=== PATIENT | male | born 1965 | race Hispanic/Latino ===

== ENCOUNTER 2025-05-29 11:03 | Emergency (ER) | payer OTHER ==
[~2025-05-29] VITALS: Ht 172.7 cm; Wt 106.1 kg
[2025-05-29] MEDS ORDERED: TETRACAINE HCL 0.5% 4 ML OPHTH SOLN OP STA (11:10)
--- NOTE | 2025-05-29 11:12 | ERN ---
ED Note History of Present Illness Stated Complaint: EYE Chief Complaint: Eye Problems Time Seen by MD: 11:05 Dictation: IN HIS A 60-YEAR-OLD MALE COMING IN WITH COMPLAINTS OF FOREIGN BODY SENSATION TO THE LEFT EYE HE HAS HAD FOR THREE WEEKS. 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 HE STATES HE CONTINUED TO WORK DID NOT GO TO THE HOSPITAL UNTIL REAL AND JUST GOT HOME TODAY. HE WENT TO [facility] THEY TOLD HIM THAT THERE WAS NO FOREIGN BODY IN HIS EYE AND COOL. BUT IF HE CONTINUED TO HAVE THE SENSATION GO TO THE EMERGENCY ROOM. HE STATES HE WAS WEARING SAFETY GLASSES AT THE TIME HOWEVER IF HE WAS SWEATING IN HIS TAKEN HIM OFF BUT HE DOES WEAR CORRECTIVE LENSES. Allergies: Coded Allergies: No Known Drug Allergies (Unverified Allergy, Unknown, 05/29/25) Past Medical History Past Medical History: Diabetes-Type II, Hypertension Surgical History: Other Surgical History Other: UMBILICAL HERNIA X 2 RN Note Reviewed/Agreed w/PFSH: Yes Review of System Dictation CONSTITUTIONAL: NEGATIVE EXCEPT FOR HPI HEAD/FACE: NEGATIVE EXCEPT FOR HPI EENT: NEGATIVE EXCEPT FOR LEFT RED EYE WITH POSSIBLE RETAINED FOREIGN BODY RESPIRATORY: NEGATIVE EXCEPT FOR HPI GASTROINTESTINAL/ABDOMINAL: NEGATIVE EXCEPT FOR HPI GENITOURINARY: NEGATIVE EXCEPT FOR HPI MUSCULOSKELETAL: NEGATIVE EXCEPT FOR HPI INTEGUMENTARY: NEGATIVE EXCEPT FOR HPI NEUROLOGICAL/PSYCH: NEGATIVE EXCEPT FOR HPI HEMATOLOGIC/LYMPHATIC: NEGATIVE EXCEPT FOR HPI ALL SYSTEMS NEGATIVE, EXCEPT NOTED ABOVE. 13 POINT REVIEW OF SYSTEMS ASSESSED AND ALL NEGATIVE EXCEPT FOR ABOVE. Initial Vital Sign VS Vital Signs Date Time Temp Pulse Resp B/P (MAP) Pulse Ox O2 Delivery O2 Flow Rate FiO2 05/29/25 11:05 97.5 58 16 120/73 97 Room Air 0 Physical Exam Dictation VITAL SIGNS REVIEWED GENERAL APPEARANCE: ALERT, ORIENTED X 3, NO ACUTE DISTRESS, WELL DEVELOPED, NOURISHED. HEAD AND FACE: NON-TRAUMATIC. EYES: PERRL, LEFT CONJUNCTIVA INJECTED EOMS INTACT. PERRLA EARS: PINNAS INTACT AND NO SIGNS OF TRAUMA OR ERYTHEMA EAR CANALS CLEAR AND NO DISCHARGE TM NO ERYTHEMA NOSE: NO DISCHARGE, NO BLEEDING. OROPHARYNX: MOUTH NORMAL, TONGUE PINK, PHARYNX CLEAR,NO ERYTHEMA, TONSILS NO EXUDATES, NO ABSCESSES NOTED, MUCOUS MEMBRANE MOIST NECK: SUPPLE, NON-TENDER, NO THYROMEGALY, NO MASSES, NO JVD, NO BRUITS BREAST:DEFERRED CHEST:NO TENDERNESS, NO CREPITUS, NO PARADOXICAL MOVEMENT, NO RETRACTIONS LUNGS:CLEAR, WELL-VENTILATED, SYMMETRIC, NO RALES, NO WHEEZING, NO RHONCHI, NO STRIDOR, GOOD BREATH SOUNDS BILATERALLY HEART: REGULAR RATE, REGULAR RHYTHM, NO MURMUR, NO GALLOPS VASCULAR: NO PERIPHERAL EDEMA, ABDOMEN: SOFT, POSITIVE BOWEL SOUNDS, NONDISTENDED, NO GUARDING, NONTENDER, NO REBOUND, NO MASSES NO HEPATOMEGALY, NO SPLENOMEGALY, NO QUIÑONEZ'S SIGN, NO HERNIAS. RECTAL: DEFERRED GENITAL: DEFERRED NEUROLOGICAL: NORMAL SPEECH, MOTOR FUNCTION INTACT, SENSORY FUNCTION INTACT MUSCULOSKELETAL: NECK NONTENDER, FULL RANGE OF MOTION, BACK NONTENDER, FULL RANGE OF MOTION, EXTREMITIES: NONTENDER, FULL RANGE OF MOTION SKIN: COLOR PINK, DRY, NO TURGOR, NO RASH, NO LACERATIONS, NO ABRASIONS, NO CONTUSIONS. LYMPHATIC: DEFERRED Results (Laboratory/Radiology) Labs Reviewed?: Yes ED Course ED Course Orders Procedure Category Date Status Time Visual Acuity Test CPOE 05/29/25 Transmitted (Er) 11:10 Tetracaine Hcl PHA 05/29/25 Complete (Pontocaine 0.5% 11:10 Fluorescein Sodium PHA 05/29/25 Complete (Hntwm-H-Zdtdu At) 11:30 Erythrocin 0.5% Ophth PHA 05/29/25 Verified Oint (Erythrocin 0 15:08 Ibuprofen 800 Mg Tab PHA 05/29/25 Verified (Motrin) 15:30 Tetanus,Diphtheria PHA 05/29/25 Verified Tox [Adult] (Diphther 15:30 Current Medications Medications (Trade) Dose Ordered Sig/Ivan Route PRN Reason Start Time Stop Time Status Last Admin Dose Admin Fluorescein Sodium (Djdtz-D-Htfiq At) 1 strip ONCE ONCE OP 05/29/25 11:30 05/29/25 11:31 DC Tetracaine HCl (Pontocaine 0.5% Ophth Soln) 2 drop ONCE STAT OP 05/29/25 11:10 05/29/25 11:12 DC Vital Signs Date Time Temp Pulse Resp B/P (MAP) Pulse Ox O2 Delivery O2 Flow Rate FiO2 05/29/25 11:05 97.5 58 16 120/73 97 Room Air 0 1510/VISUAL ACUITY CHECK LEFT 20/15 RIGHT 20/20 BILATERAL 20/15 CORRECTED Medical Decision Making [facility] 1512/MEDICAL DISCHARGE MAKING BASED ON VISUAL ACUITY TETANUS UPDATE EYE EXAM PATIENT HAS A RETAINED FOREIGN BODY LEFT EYE REFERRED TO [facility] ERYTHROMYCIN OPHTHALMIC OINTMENT APPLIED Procedure Procedure Dictation: 1505/PROCEDURE EXPLAINED TO PATIENT HE AGREED TO PROCEED TWO DROPS TETRACAINE LEFT EYE FLUORESCEIN STAIN APPLIED LEFT EYE EXAMINED WITH WOOD'S LAMP, UPPER LID EVERTED PATIENT HAS A SMALL RETAINED FOREIGN BODY TO THE 3 O'CLOCK POSITION NO ATTEMPT TO REMOVE IT THIS TIME DUE TO POSITION AND I. PATIENT WILL BE REFERRED TO [facility] DX & DISP Disposition: Discharge Departure Impression: Primary Impression: Foreign body of left eye Condition: Stable Scripts Ibuprofen (Ibuprofen 800 mg Tab) 800 Mg Tab 800 MG PO Q8H PRN for fever or pain, #30 TAB 0 Refills Prov: ANDREA CELESTIN 05/29/25 Erythromycin Base (Erythromycin) 5 Mg/Gram (0.5 %) Oint...g. 1 APPL OS QID for 7 Days, #5 GM 0 Refills apply 1 cm ribbon into the lower conjunctival sac Prov: ANDREA CELESTIN 05/29/25 Additional Instructions: FOLLOW-UP WITH PRIMARY CARE PROVIDER IN 1 TO 2 DAYS. TAKE MEDICATIONS DIRECTED HERE IN THE EMERGENCY ROOM. OKAY TO CONTINUE HOME MEDICATIONS UNLESS OTHERWISE DISCUSSED DURING YOUR VISIT IN THE EMERGENCY ROOM TODAY. RETURN TO YOUR NEAREST EMERGENCY ROOM IF SYMPTOMS WORSEN OR IF THERE IS NO IMPROVEMENT. CALL 911 IF YOU NEED IMMEDIATE ASSISTANCE. TAKE TYLENOL OR MOTRIN [id number] NEEDED AND IF NO CONTRAINDICATIONS ARE PRESENT. INCREASE ORAL HYDRATION. A WOUND CULTURE OR URINE CULTURE WAS ORDERED HERE IN THE EMERGENCY ROOM DEPARTMENT PLEASE FOLLOW-UP WITH PRIMARY CARE PROVIDER AND ADVISE THEM TO GET REPEAT PORTS FROM OUR FACILITY. IF YOU HAD ANY DAWOOD WRAP/SPLINTS THAT WERE APPLIED HERE, PLEASE DO NOT REMOVE THEM UNTIL YOU SEE YOUR PRIMARY CARE OR SPECIALTY. 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 USE ERYTHROMYCIN OPHTHALMIC OINTMENT DIRECTED 4 TIMES A DAY FOR THE NEXT SEVEN DAYS. FOLLOW UP WITH [facility], PHONE [phone] NO WORK UNTIL MEDICALLY CLEARED BY [facility]. I have reviewed the case, and I agree with, Diagnosis and Plan ANDREA CELESTIN May 29, 2025 11:12
[2025-05-29] MEDS ORDERED: FLUORESCEIN SODIUM 1 STRIP STRIP OP ONE (11:30)
[2025-05-29] MEDS ORDERED: ERYTHROMYCIN BASE 0.5% OPHTH OINT 1 GM TUBE OS STA (15:08)
[2025-05-29] MEDS ORDERED: ERYT1OIN7 OS (15:15)
[2025-05-29] MEDS ORDERED: IBUP-2077 PO (15:15)
[2025-05-29 15:45] VITALS: BP 125/73; PULSE 60; RESP 16; TEMP 97.5; O2SAT 97
== END 2025-05-29 15:48 | disposition home or self-care (01) ==
LOC: EDH 11:03
DX: T15.92XA Foreign body on external eye, part unspecified, left eye, initial encounter (principal); E11.9 Type 2 diabetes mellitus without complications; I10 Essential (primary) hypertension; W44.9XXA Unspecified foreign body entering into or through a natural orifice, initial encounter; Y93.89 Activity, other specified; Y92.89 Other specified places as the place of occurrence of the external cause; Y99.8 Other external cause status
CPT/HCPCS: 99283